=== PATIENT | female | born 1955 | race Caucasian/White ===

== ENCOUNTER 2021-08-21 05:52 | Day surgery (SDC) | payer MEDICARE ==
[~2021-08-21] VITALS: Ht 165.1 cm; Wt 95.5 kg
[~2021-08-21 05:52] MED LIST: ASPIR 8181 MG PO; CALCIUM600 MG PO; MAGNESIUM400 M1 PO; METOPROLOL SUCC25 MG PO; PRAVACHOL20 MG PO; PRILOSEC OTC20 MG PO; SPIRONOLACTONE50 MG PO; VITAMIN D325 MC2 PO; WELLBUTRIN XL300 MG PO
--- NOTE | 2021-08-21 08:46 | NUR ---
08/21/21 0846 Sheets,Darline 0835 PT ARRIVED TO PACU VSS. PT REACTIVE TO TACTILE STIMULI AND SHALLOW BREATHING NOTED, DEEP BREATHING ENCOURAGED. 0839 O2 REMOVED, PT REPORTS SMALL AMOUNT OF PAIN IN RIGHT ARM, 2/10 AND TOLERABLE.
[2021-08-21] MEDS ORDERED: ACETAMINOPHEN500 MG PO (08:50)
[2021-08-21] MEDS ORDERED: OXYCODON-ACETA1 EAC2 PO (08:50)
[2021-08-21] MEDS ORDERED: IBUPROFEN600 MG PO (08:50)
--- NOTE | 2021-08-21 09:11 | NUR ---
PATIENT BACK FROM PACU. REPORT RECIEVED FROM TIA GARCIA. PATIENT IS ALERT AND ORIENTED X4. VITAL SIGNS DOCUMENTED. BREATHING EQUAL AND UNLABORED. OXYGEN SATURATIONS AND RR WNL ON ROOM AIR. PATIENT DENIES NASEAU. COMPLAINS OF 2/10 PAIN STABBING AT SURGICAL SITES. RIGHT UPPER ARM SURGICAL SITE HAS GUAZE AND TAPE COVERING CLEAN, DRY AND INTACT. THE LEFT LOWER LEG SURGICAL SITE HAS GUAZE AND TAPE. SMALL AMOUNT OF DRAINAGE PRESENT. BLOOD TINGED. IV SITE PATENT. PATIENT EATING A PUDDING AND DRINKING SIPS OF WATER. CALL LIGHT WITHIN REACH NO FUTHER NEEDS. NO QUESTIONS AT THIS TIME.
--- NOTE | 2021-08-21 10:05 | NUR ---
PATIENT ASSESSMENT COMPLETE. PATIENT IS ALERT AND ORIENTED. BREATHING EQUAL AND UNLABORED. OXYGEN SATURATIONS AND RR WNL ON ROOM AIR. PATIENT COMPLAINS OF 1/10 PAIN AND STATES "I FEEL BARELY ANY PAIN." SURGICAL SITE RIGHT UPPER ARM DRESSING IS DRY AND INTACT. SURGICAL SITE IN LEFT LOWER LEG HAS SMALL MODERATE DRAINAGE. BLOOD TINGED. PATIENT WAS ABLE TO EAT PUDDING, DRINK WATER AND VOID 200 MLS OF YELLOW AND CLEAR URINE. PATIENT HAS MET CRITERIA TO DISCHARGE. DISCHARGE EDUCATION UNDERSTOOD. PERSCRIPTION GIVEN TO PATIENT. IV SITE PULLED WNL. NO QUESTIONS AT THIS TIME. PATIENT WAS ABLE TO AMBULATE WELL TO BATHROOM AND TO WHEELCHAIR. PRESENT AT DISCHARGE TO [facility].
--- NOTE | 2021-08-21 12:33 | NUR ---
PT ALERT, ORIENTED AND WAITING IN CAR. PT SOMEWHAT ANXIOUS, GAVE HER ENCOURAGEMENT, PT REQUESTED PRAYER. WILL FOLLOW NEEDED
--- NOTE | 2021-08-21 22:00 | OR ---
[facility] [address] [place], [place] [address] Signed DATE OF OPERATION: 08/21/2021 SURGEON: Brad Resendez MD PREOPERATIVE DIAGNOSES: 1. 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 2. 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 POSTOPERATIVE DIAGNOSES: 1. 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 2. 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 PROCEDURE: 1. Re-excision of right upper arm anterolateral melanoma in situ, excision size 6 x 4 cm with layered closure. 2. Re-excision of left anterolateral lower leg melanoma in situ, excision size 4 cm x 3 cm with primary closure (layered). ANESTHESIA: General LMA; Tanner Carrasco CRNA INDICATIONS: This 65-year-old white woman is a patient of Alberto Mcfarland. She was evaluated by GUERLIEN Jones of [facility] and underwent shave excision of her right anterolateral pigmented skin lesion which was considered to be lentigo maligna (melanoma in situ). The peripheral specimen showed positive margin. The deep margin was considered negative. Additionally, shave excision of the left distal pretibial region by similar technique confirmed melanoma in situ with a deep margin of 1 mm and a peripheral margin of 2 mm. The patient does have family history of melanoma in her mother who of the disease. She is admitted for re-excision of both lesions to assure negative margins. The risk of bleeding, infection, cosmetic deformity, need for advanced closure techniques including rotational flap were all reviewed with her. She understands and wished to proceed. FINDINGS: The anterior tibial scar was relatively dense, but there was still some ongoing inflammation. Consideration had been made for rotational flap for closure but primary closure was undertaken after wide excision with minimal 1 cm margin from the scar site itself. There is contour change in the anterior tibial area, but less so than the previous shave biopsy and rotational flap was not required. Electronically Signed By: BRAD RESENDEZ MD 08/21/21 2200 PATIENT NAME: DERRICK GATES OPERATIVE REPORT DATE OF : 51 REPORT #: [id number] PHYSICIAN: BRAD RESENDEZ MD PCP: ALBERTO MCFARLAND PAC REPORT IS CONFIDENTIAL AND NOT TO BE RELEASED WITHOUT AUTHORIZATION [facility] [address] [place], [place] [address] Signed In the right anterolateral upper arm, excision was undertaken in the axial direction and given the fair amount of redundancy of her soft tissue and skin, primary closure was afforded with layered technique, not requiring rotational flap either. That excision size was 6 cm in total. DESCRIPTION OF PROCEDURE: The patient was brought to the operating room, and given a general anesthetic by LMA technique. Preoperative antibiotic Ancef was given. Sequential compression device stockings were used and heparin subcutaneously administered. The right upper arm and left anterior ruiz area prepared with a Betadine solution and draped sterilely. Attention was turned towards the pretibial lesion first. The lesion was measured for at least a minimum of 1 cm margin around the scar. Elliptical incision was made in an axial direction. Dissection was carried through the dermis, which was relatively thin and very thickened pretibial fat excised as well. The specimen was oriented with short stitch superior and a long stitch lateral, passed for pathology. Hemostasis was assured with electrocautery. Flaps were elevated laterally and using interrupted 2-0 Vicryl, deep dermal layer was able to be reapproximated without need for rotational flap. The skin was then closed with interrupted 2-0 nylon in a vertical mattress configuration with several interrupted 3-0 nylon sutures opposing the skin. Although, there was some contour change, I believe it will remodel in due course. Attention was turned towards the right anterolateral arm lesion. Although the scar was oriented transversely, wide resection with minimal margin laterally of 1 cm and superiorly and inferiorly at least 2 cm wide excision was undertaken. As the skin and subcutaneous tissue was more , flaps elevated laterally allowed for more easy reapproximation using interrupted 2-0 Vicryl in deep dermal layer and a running 3-0 nylon for the skin. Bacitracin was applied to each wound as well as gauze dressing. Excision size of the arm lesion was 6 cm in length. She was allowed to emerge from anesthesia and taken to the recovery room in good condition having suffered no complications. Sponge, needle, and instrument counts were reported as correct x3. MD JARED Salinas/RASHMIL /[id number] Electronically Signed By: BRAD RESENDEZ MD 08/21/21 2200 PATIENT NAME: DERRICK GATES OPERATIVE REPORT DATE OF : 51 REPORT #: [id number] PHYSICIAN: BRAD RESENDEZ MD PCP: ADDLEMAN,ALBERTO K PAC REPORT IS CONFIDENTIAL AND NOT TO BE RELEASED WITHOUT AUTHORIZATION [facility] [address] [place], [place] [address] Signed cc: PAYTON Beaulieu FNP Copies: ~ Electronically Signed By: BRAD RESENDEZ MD 08/21/212199 PATIENT NAME: DERRICK GATES OPERATIVE REPORT DATE OF : 51 REPORT #: [id number] PHYSICIAN: BRAD RESENDEZ MD PCP: ALBERTO MCFARLAND PAC REPORT IS CONFIDENTIAL AND NOT TO BE RELEASED WITHOUT AUTHORIZATION
--- NOTE | 2021-08-28 15:24 | PATH ---
[facility] [place] [facility] [address] [place], [place] [address] Signed SPECIMEN(S): A RE-EXCISION LEFT LEG PRETIBIAL SPECIMEN(S): B RIGHT ANTERIOR LATERAL UPPER ARM SPECIMEN SOURCE: A. RE-EXCISION LEFT LEG PRETIBIAL B. RIGHT ANTERIOR LATERAL UPPER ARM CLINICAL HISTORY: A) Melanoma dx by prior biopsy, margins negative, left lower limb (long stitch lateral, short stitch superior); 5 cm incision site. B) Melanoma dx by prior biopsy, peripheral margin positive, deep margin negative, right upper arm (long stitch lateral, short stitch superior); 6 cm incision site. FINAL PATHOLOGIC DIAGNOSIS: A. Skin, left leg, pretibial, re-excision: - Epidermal ulceration, dermal scar and reparative change. - Negative for residual melanoma in situ. B. Skin, right anterior lateral upper arm, re-excision: - Epidermal ulceration, dermal scar and reparative change. - Focal actinic keratosis. - Focal intradermal nevus; present at lateral margin. - Negative for residual melanoma in situ. COMMENT: This case was reviewed by another member of our pathology staff with subspecialty board-certification in dermatopathology. NAL:cml:C2NR MICROSCOPIC EXAMINATION: Histologic sections of all submitted blocks are examined by light microscopy. These findings, together with the gross examination, support the pathologic diagnosis. Melan A immunohistochemical stains (with appropriately staining controls) on insurance claims representative sections of the right arm excision (specimen B, B1, B6) confirm the absence of residual melanoma in situ. GROSS DESCRIPTION: Two specimens are received in two containers, labeled "TR." A. The specimen, labeled "TR, re-excision, left leg pretibial region," is received in formalin and consists of a skin ellipse that measures 3.0 x 1.5 x PATIENT NAME: DERRICK GATES PATHOLOGY DATE OF : 51 REPORT #: [id number] PHYSICIAN: GLORIA PATHOLOGY PCP: ALBERTO MCFARLAND PAC REPORT IS CONFIDENTIAL AND NOT TO BE RELEASED WITHOUT AUTHORIZATION [facility] [place] [facility] [address] [place], [place] [address] Signed 1.3 cm. Skin surface shows irregular shaped, ulcerous defect that measures 0.8 cm in diameter. Ulcerous defect is 0.3 cm to surgical margin. Specimen is oriented: Long stitch-lateral, short stitch-superior. They are arbitrarily designated as long stitch-12 o'clock and short stitch-3 o'clock. Specimen is inked: 12 to 6 o'clock-blue, 6 to 12 o'clock-green. Specimen is serially sectioned from 12 to 6 o'clock and sequentially and entirely submitted in four cassettes as follows: Cassette Summary: (A1-A2) 12 o'clock half (A3-A4) 6 o'clock half B. The specimen, labeled "TR, right anterior lateral upper arm lesion," is received in formalin and consists of a skin ellipse that measures 4.3 x 2.7 x 1.5 cm. Skin surface shows irregular shaped and irregular colored, pink-flores, focally congested macule that measures 2.0 x 1.5 cm. Specimen is oriented: Long stitch-lateral, short stitch-superior. That is arbitrarily designated as a short stitch-12 o'clock, long stitch-9 o'clock. Specimen is inked: 12 to 6 o'clock-blue, 6 to 12 o'clock-green. Specimen is serially sectioned from 12 to 6 o'clock and sequentially and entirely submitted in seven cassettes as follows: Cassette Summary: (B1-B3) 12 o'clock half (B4-B7) 6 o'clock half JS (under the direct supervision of a pathologist) The Gross Description was prepared using a voice recognition system. The report was reviewed for accuracy; however, sound-alike word errors, addition and/or deletions may occur. If there is any question about this report, please contact Client Services. ADDITIONAL NOTES: Immunohistochemical and/or in situ hybridization studies were performed on this case with the appropriate positive controls that react as expected. This test was developed and its performance characteristics determined by [facility]. It has not been cleared or approved by the U.S. Food and Drug Administration. The FDA has determined that such clearance or approval is not necessary. This test is used for clinical purposes. It should not be regarded as investigational or for research. [facility] is certified under the Clinical Laboratory Improvement Amendments of 1988 (CLIA) as qualified to perform high complexity clinical PATIENT NAME: DERRICK GATES PATHOLOGY DATE OF : 51 REPORT #: [id number] PHYSICIAN: GLORIA PATHOLOGY PCP: ALBERTO MCFARLAND PAC REPORT IS CONFIDENTIAL AND NOT TO BE RELEASED WITHOUT AUTHORIZATION [facility] [place] [facility] [address] [place] [id number] Signed laboratory testing. This assay has not been validated for specimens that have been decalcified. The technical component was performed by [facility], [address] [place] [address] (Coagulator: Faye Leung MD; CLIA# [id number]). [facility], [address] [place] [address] (CLIA# [id number]). PERFORMING LABORATORY: The technical component was performed by [facility], [address] [place] [address] (Coagulator: Faye Leung MD; CLIA# [id number]). Professional interpretation was performed by [facility], [address] [address], [place], [place] [address] (CLIA# [id number]). Diagnostician: Millie Rodriguez MD Pathologist Electronically Signed 08/28/2021 Copies: ~ PATIENT NAME: DERRICK GATES PATHOLOGY DATE OF : 51 REPORT #: [id number] PHYSICIAN: GLORIA PATHOLOGY PCP: ALBERTO MCFARLAND PAC REPORT IS CONFIDENTIAL AND NOT TO BE RELEASED WITHOUT AUTHORIZATION
== END 2021-08-21 10:05 | disposition home or self-care (01) ==
LOC: DS 05:52
PROVIDERS: ATTEND Surgery
PROC: 0HBBXZZ Excision of Right Upper Arm Skin, External Approach (ICD-10-PCS; principal; 2021-08-21 07:30)
PROC: 0HQLXZZ Repair Left Lower Leg Skin, External Approach (ICD-10-PCS; 2021-08-21 07:30)
DX: D03.61 Melanoma in situ of right upper limb, including shoulder (principal); D03.72 Melanoma in situ of left lower limb, including hip; L57.0 Actinic keratosis; D23.61 Other benign neoplasm of skin of right upper limb, including shoulder; I10 Essential (primary) hypertension; F32.A Depression, unspecified; Z98.84 Bariatric surgery status
CPT/HCPCS: 00400; 88305; 88342; J0131; J0690; J1100; J1885; J2001; J2405; J2704; J3010; J7121

== ENCOUNTER 2022-07-16 16:24 | Emergency (ER) | payer MEDICARE ==
[~2022-07-16] VITALS: Ht 165.1 cm; Wt 95.2 kg
[~2022-07-16 16:24] MED LIST changes: +ACETAMINOPHEN500 MG PO; +IBUPROFEN600 MG PO; +OXYCODON-ACETA1 EAC2 PO
== END 2022-07-16 18:30 | disposition home or self-care (01) ==
LOC: ED 16:24
DX: S90.31XA Contusion of right foot, initial encounter (principal); Z88.5 Allergy status to narcotic agent; Z79.899 Other long term (current) drug therapy; W22.8XXA Striking against or struck by other objects, initial encounter
CPT/HCPCS: 73630; 99283-25

== ENCOUNTER 2024-03-23 19:55 | Emergency (ER) | payer MEDICARE ==
[~2024-03-23] VITALS: Ht 165.1 cm; Wt 96.0 kg
[2024-03-23 20:49] LABS: INFLUENZA B NAA NEGATIVE (NEGATIVE); RESPIRATORY SYNCYTIAL VIR NAA NEGATIVE (NEGATIVE)
[2024-03-23] MEDS ORDERED: INHALER, ASSIST DEVICES 1 EACH SPACER MISC ONE (22:00)
[2024-03-23] MEDS ORDERED: ALBUTEROL SULFATE 8 GM HOME.PACK INH ONE (22:00)
[2024-03-23] MEDS ORDERED: ALBUTEROL/IPRATROPIUM 3 ML NEB INH ONE (22:00)
[2024-03-23] MEDS ORDERED: DEXAMETHASONE SOD PHOS 10 MG/ML VIAL IM ONE (22:00)
[2024-03-23] MEDS ORDERED: IPRATROPIUM BROMIDE 2.5 ML VIAL INH ONE (22:45)
[2024-03-23] MEDS ORDERED: ALBUTEROL SULFATE 0.5% 2.5 MG/0.5 ML VIAL INH ONE (22:45)
[2024-03-23 22:59] LABS: EOSINOPHILS 3.3 % (0-6); HEMATOCRIT 35.7 % (35.0-50.0); HEMOGLOBIN 11.8 g/dL (12.0-18.0); LYMPHOCYTES 20.3 % (24-44); MCH 28.2 (27-36); MCV 85.5 fl (81-99); MONOCYTES 9.9 % (0-12); NEUTROPHILS 62.5 % (39-80); PLATELET COUNT 197 K/uL (140-440); RBC 4.18 M/ul (4.3-5.7); RDW 15.2 (10.5-15.0)
[2024-03-23 23:22] LABS: ALBUMIN 3.7 g/dL (3.4-5.0); ALBUMIN/GLOBULIN RATIO 1.12 (1.1-2.4); ANION GAP 13.1 (7-21); BILIRUBIN, TOTAL 0.4 ng/dL (0.2-1.0); BUN/CREATININE RATIO 11.71 (6.0-28.6); CALCIUM 9.6 mg/dL (8.5-10.1); CREATININE, SERUM 1.11 mg/dL (0.55-1.02); POTASSIUM 4.1 mmol/L (3.5-5.1)
[2024-03-24 00:25] VITALS: BP 134/70
--- NOTE | 2024-03-25 21:39 | EKG ---
[facility] [address] [facility] [place] [address] Signed Normal sinus rhythm Inferior infarct , age undetermined Abnormal ECG When compared with ECG of 15-AUG-2021 15:30, Borderline criteria for Anterior infarct are no longer present No significant change was found Confirmed by Pablito Salas MD ([id number]) on 03/25/2024 9:39:15 PM Electronically Signed By: PABLITO SALAS DO 03/25/24 2139 PATIENT NAME: DERRICK GATES Electrocardiogram DATE OF : 51 PHYSICIAN: PABLITO SALAS DO REPORT #: [id number] REPORT IS CONFIDENTIAL AND NOT TO BE RELEASED WITHOUT AUTHORIZATION
== END 2024-03-24 00:25 | disposition home or self-care (01) ==
LOC: ED 19:55
PROVIDERS: Internal Medicine
DX: J06.9 Acute upper respiratory infection, unspecified (principal); I10 Essential (primary) hypertension; Z88.5 Allergy status to narcotic agent; Z79.899 Other long term (current) drug therapy
CPT/HCPCS: 36415; 71045; 80053; 83880; 84484; 85025; 85060; 85379; 87502; 93005; 93010; 94640; 94644; 96372; 99284-25; J1100; U0002